=== PATIENT | female | born 2000 | race Caucasian/White ===

== ENCOUNTER 2021-10-25 12:45 | Emergency (ER) | payer OTHER ==
[2021-10-26 15:26] LABS: Chlamydia by PCR Not Detected (NotDetected); GC by PCR Not Detected (NotDetected)
== END 2021-10-25 15:30 | disposition home or self-care (01) ==
LOC: CSHERS 12:45
DX: O20.0 Threatened abortion (principal); Z3A.08 8 weeks gestation of pregnancy
CPT/HCPCS: 87480; 87491; 87510; 87591; 87660

== ENCOUNTER 2021-10-26 23:37 | Emergency (ER) | payer OTHER | END 2021-10-27 00:22 | disposition home or self-care (01) | LOC: CSHERS 23:37 | DX: O23.591 Infection of other part of genital tract in pregnancy, first trimester (principal); Z3A.08 8 weeks gestation of pregnancy | CPT/HCPCS: 99283 ==

== ENCOUNTER 2021-11-03 17:51 | Emergency (ER) | payer OTHER ==
[2021-11-03 18:30] LABS: #Monocytes 0.5 10x3/uL (0.0-1.1); #Neutrophils 5.2 10x3/uL (1.5-8.4); %Basophils 0.4 % (0.0-2.0); %Eosinophils 0.6 % (0.0-6.0); %Lymphocytes 16.6 % (18.0-47.0); %Monocytes 6.5 % (0.0-10.0); %Neutrophils 75.5 % (40.0-75.0); Hemoglobin 10.6 g/dL (12.0-15.5); Mean Corpuscular HGB CONC 31.5 g/dL (32.0-36.0); Mean Corpuscular Hemoglobin 22.6 pg (27.0-33.0); Mean Corpuscular Volume 71.5 fl (81.6-98.3); Platelet Count 273 10x3/uL (150-450); RBC Distribution Width 15.3 % (11.5-14.5); White Blood Cell (WBC) Count 6.9 10x3/uL (3.5-10.5)
[2021-11-04 21:20] LABS: Chlamydia by PCR Not Detected (NotDetected); GC by PCR Not Detected (NotDetected)
== END 2021-11-03 19:35 | disposition home or self-care (01) ==
LOC: CSHERS 17:51
DX: O20.0 Threatened abortion (principal); Z3A.10 10 weeks gestation of pregnancy
CPT/HCPCS: 36415; 84702; 85025; 86900; 86901; 87480; 87491; 87510; 87591; 87660

== ENCOUNTER 2022-03-03 13:56 | Day surgery (SDC) | payer OTHER ==
[2022-03-03 14:20] VITALS: BMI 21.1
[2022-03-03 14:56] LABS: Fetal Membranes Rupture No Membranes Rupture (No Rupture)
[2022-03-03] MEDS ORDERED: hydrALAZINE 20 MG/ML VIAL SLOW IVP PRN (15:09)
[2022-03-03] MEDS ORDERED: Acetaminophen/Codeine 30-300mg Tablet PO SCH (15:15)
[2022-03-03 15:48] LABS: Bilirubin Neg (Negative); Blood, Urine Negative (Negative); Clarity Slightly Cloudy (Clear); Glucose, Urine (Dipstick) Normal (Negative); Ketone, Urine 150 mg/dL (Negative); Leukocyte Negative (Negative); Nitrite Negative (Negative); Protein, Urine (Dipstick) Negative (Neg-Trace)
[2022-03-03 16:04] LABS: Bacteria/HPF 1+ HPF (None Seen); Mucous/LPF 2+ LPF (<2+); RBC/HPF 0-3 HPF (0-3)
== END 2022-03-03 16:30 | disposition home or self-care (01) ==
LOC: CSHLD/OP 13:56
PROVIDERS: ATTEND Obstetrics & Gynecology
DX: O26.892 Other specified pregnancy related conditions, second trimester (principal); N89.8 Other specified noninflammatory disorders of vagina; M54.9 Dorsalgia, unspecified; R10.9 Unspecified abdominal pain; O98.812 Other maternal infectious and parasitic diseases complicating pregnancy, second trimester; B37.3 Candidiasis of vulva and vagina; O23.592 Infection of other part of genital tract in pregnancy, second trimester; B96.89 Other specified bacterial agents as the cause of diseases classified elsewhere; Z3A.27 27 weeks gestation of pregnancy; Z91.040 Latex allergy status; Z91.048 Other nonmedicinal substance allergy status
CPT/HCPCS: 81001; 84112; 87480; 87510; 87660

== ENCOUNTER 2022-03-15 21:10 | Day surgery (SDC) | payer OTHER ==
[2022-03-15 21:32] VITALS: BMI 21.1
[2022-03-15] MEDS ORDERED: hydrALAZINE 20 MG/ML VIAL SLOW IVP PRN (22:04)
== END 2022-03-15 22:08 | disposition left against medical advice (07) ==
LOC: CSHLD/OP 21:10
PROVIDERS: ATTEND Obstetrics & Gynecology
DX: O47.03 False labor before 37 completed weeks of gestation, third trimester (principal); Z53.29 Procedure and treatment not carried out because of patient's decision for other reasons; Z3A.28 28 weeks gestation of pregnancy; Z91.040 Latex allergy status; Z91.048 Other nonmedicinal substance allergy status; Z86.19 Personal history of other infectious and parasitic diseases

== ENCOUNTER 2022-03-16 00:38 | Day surgery (SDC) | payer OTHER ==
[2022-03-16 00:54] VITALS: BMI 21.1
[2022-03-16] MEDS ORDERED: hydrALAZINE 20 MG/ML VIAL SLOW IVP PRN (01:02)
[2022-03-16] MEDS ORDERED: Lactated Ringer's 1,000 ML IV SCH (01:30)
[2022-03-16 01:43] LABS: Bilirubin Neg (Negative); Blood, Urine Negative (Negative); Clarity Slightly Cloudy (Clear); Glucose, Urine (Dipstick) Normal (Negative); Ketone, Urine Negative (Negative); Leukocyte Negative (Negative); Nitrite Negative (Negative); Protein, Urine (Dipstick) 15 mg/dl (Neg-Trace); Specific Gravity, Urine 1.025 (1.002-1.036); Urobilinogen 12 mg/dL (Less than 2)
[2022-03-16 01:49] LABS: Urine Culture Reflex No No
[2022-03-16 01:50] LABS: Bacteria/HPF 1+ HPF (None Seen); RBC/HPF 0-3 HPF (0-3); WBC/HPF 0-3 HPF (0-3)
[2022-03-16 01:51] LABS: Crystals/HPF 3+ CA OXALATE HPF (Negative)
[2022-03-16 02:51] LABS: FFN Internal QC Analyzer PASS (PASS); FFN Internal QC Cassette PASS (PASS); Fetal Fibronectin Negative (Negative)
== END 2022-03-16 06:30 | disposition home or self-care (01) ==
LOC: CSHLD/OP 00:38
PROVIDERS: ATTEND Obstetrics & Gynecology
DX: O47.03 False labor before 37 completed weeks of gestation, third trimester (principal); O09.213 Supervision of pregnancy with history of pre-term labor, third trimester; Z3A.28 28 weeks gestation of pregnancy; Z79.2 Long term (current) use of antibiotics; Z91.040 Latex allergy status
CPT/HCPCS: 81001; 82731

== ENCOUNTER 2022-04-17 15:03 | Day surgery (SDC) | payer OTHER ==
[2022-04-17] MEDS ORDERED: hydrALAZINE 20 MG/ML VIAL SLOW IVP PRN (17:18)
[2022-04-17 18:16] LABS: Fetal Membranes Rupture No Membranes Rupture (No Rupture)
[2022-04-17 18:32] LABS: Bilirubin Neg (Negative); Blood, Urine Negative (Negative); Clarity Clear (Clear); Glucose, Urine (Dipstick) Normal (Negative); Ketone, Urine 5 mg/dL (Negative); Leukocyte 25 (Negative); Nitrite Negative (Negative); Protein, Urine (Dipstick) Negative (Neg-Trace); Specific Gravity, Urine 1.005 (1.002-1.036); pH, Urine 6.5 (5.0-9.0)
[2022-04-17 18:34] LABS: Urine Culture Reflex No No
[2022-04-17 18:42] LABS: WBC/HPF 0-3 HPF (0-3)
[2022-04-17 18:43] LABS: Bacteria/HPF Rare-Few HPF (None Seen); RBC/HPF None Seen HPF (0-3); Squamous Epithelial 0-3 HPF (0-3)
== END 2022-04-17 19:15 | disposition home or self-care (01) ==
LOC: CSHLD/OP 15:03
PROVIDERS: ATTEND Obstetrics & Gynecology
DX: O26.893 Other specified pregnancy related conditions, third trimester (principal); R10.9 Unspecified abdominal pain; O98.813 Other maternal infectious and parasitic diseases complicating pregnancy, third trimester; B37.49 Other urogenital candidiasis; Z3A.33 33 weeks gestation of pregnancy
CPT/HCPCS: 81001; 84112; 87077; 87086; 87480; 87510; 87660

== ENCOUNTER 2022-04-25 21:37 | Day surgery (SDC) | payer OTHER ==
[2022-04-25 21:50] VITALS: BMI 22.0
[2022-04-25] MEDS ORDERED: hydrALAZINE 20 MG/ML VIAL SLOW IVP PRN (22:48)
[2022-04-25] MEDS ORDERED: Acetaminophen 325 MG TAB PO SCH (23:00)
[2022-04-26] MEDS ORDERED: Fluconazole 100 MG TAB PO SCH
[2022-04-26] MEDS ORDERED: Morphine 10 MG/ML VIAL IM SCH (00:15)
[2022-04-26] MEDS ORDERED: Promethazine 25 MG TAB PO SCH ×2 (00:15→04:00)
[2022-04-26] MEDS ORDERED: Acetaminophen 500 MG TAB PO SCH (04:00)
[2022-04-26] MEDS ORDERED: Ondansetron ODT 4 MG TAB PO SCH (08:00)
== END 2022-04-26 07:55 | disposition home or self-care (01) ==
LOC: CSHLD/OP 21:37
PROVIDERS: ATTEND Obstetrics & Gynecology
DX: O26.893 Other specified pregnancy related conditions, third trimester (principal); R10.2 Pelvic and perineal pain; M54.50 Low back pain, unspecified; N89.8 Other specified noninflammatory disorders of vagina; Z3A.34 34 weeks gestation of pregnancy; Z79.899 Other long term (current) drug therapy; Z91.041 Radiographic dye allergy status; Z88.8 Allergy status to other drugs, medicaments and biological substances; Z98.890 Other specified postprocedural states
CPT/HCPCS: 87480; 87510; 87660; 96360; 96361; 99285; J2270; Q0169

== ENCOUNTER 2022-05-05 18:39 | Day surgery (SDC) | payer OTHER ==
[2022-05-05] MEDS ORDERED: hydrALAZINE 20 MG/ML VIAL SLOW IVP PRN (19:55)
[2022-05-05] MEDS ORDERED: Morphine 10 MG/ML VIAL IM SCH (20:00)
[2022-05-05] MEDS ORDERED: Promethazine HCl 25 MG/ML VIAL IM SCH (20:00)
[2022-05-07] MEDS ORDERED: hydrALAZINE 20 MG/ML VIAL SLOW IVP PRN (23:00)
[2022-05-07] MEDS ORDERED: Fluconazole 100 MG TAB PO SCH (23:59)
== END 2022-05-05 21:35 | disposition home or self-care (01) ==
LOC: CSHLD/OP 18:39
PROVIDERS: ATTEND Obstetrics & Gynecology
DX: O60.03 Preterm labor without delivery, third trimester (principal); Z3A.36 36 weeks gestation of pregnancy; O26.893 Other specified pregnancy related conditions, third trimester; N89.8 Other specified noninflammatory disorders of vagina; Z87.19 Personal history of other diseases of the digestive system; Z79.899 Other long term (current) drug therapy; Z91.040 Latex allergy status
CPT/HCPCS: 87480; 87510; 87660; 96372; 99285; J2270; J2550

== ENCOUNTER 2022-05-07 22:35 | Day surgery (SDC) | payer OTHER ==
[2022-05-07] MEDS ORDERED: hydrALAZINE 20 MG/ML VIAL SLOW IVP PRN (23:14)
[2022-05-07] MEDS ORDERED: Acetaminophen/Codeine 30-300mg Tablet PO SCH (23:15)
[2022-05-07] MEDS ORDERED: Fluconazole 100 MG TAB PO SCH (23:30)
[2022-05-08 00:20] LABS: Fetal Membranes Rupture No Membranes Rupture (No Rupture)
== END 2022-05-08 01:00 | disposition home or self-care (01) ==
LOC: CSHLD/OP 22:35
PROVIDERS: ATTEND Obstetrics & Gynecology
DX: O26.893 Other specified pregnancy related conditions, third trimester (principal); R10.2 Pelvic and perineal pain; O42.913 Preterm premature rupture of membranes, unspecified as to length of time between rupture and onset of labor, third trimester; Z91.040 Latex allergy status; O98.813 Other maternal infectious and parasitic diseases complicating pregnancy, third trimester; B37.3 Candidiasis of vulva and vagina; Z3A.36 36 weeks gestation of pregnancy
CPT/HCPCS: 84112; 99284

== ENCOUNTER 2022-05-24 23:35 | Day surgery (SDC) | payer OTHER ==
[2022-05-25] MEDS ORDERED: hydrALAZINE 20 MG/ML VIAL SLOW IVP PRN (00:15)
[2022-05-25 00:37] LABS: Fetal Membranes Rupture No Membranes Rupture (No Rupture)
== END 2022-05-25 01:02 | disposition home or self-care (01) ==
LOC: CSHLD/OP 23:35
PROVIDERS: ATTEND Obstetrics & Gynecology
DX: O47.1 False labor at or after 37 completed weeks of gestation (principal); Z91.040 Latex allergy status; Z3A.38 38 weeks gestation of pregnancy
CPT/HCPCS: 84112; 99282

== ENCOUNTER 2022-06-06 16:13 | Observation (INO) | payer OTHER ==
[2022-06-06] MEDS ORDERED: Prochlorperazine 10 MG/2 ML VIAL ONE (17:11)
[2022-06-06] MEDS ORDERED: diphenhydrAMINE 50 MG/ML VIAL ONE ×2 (17:12→18:44)
[2022-06-06] MEDS ORDERED: Ketorolac Tromethamine 30 MG/ML VIAL ONE (17:12)
[2022-06-06] MEDS ORDERED: Caffeine/Sodium Benzoate 0.5 GM in Sodium Chloride 0.9% 1,000 ML IVPB SCH (17:45)
[2022-06-06] MEDS ORDERED: Magnesium 2 GM/50 ML BAG (IN WATER) ONE ×2 (19:37→19:44)
[2022-06-06 20:15] LABS: #Basophils 0.1 10x3/uL (0.0-0.2); #Eosinphils 0.1 10x3/uL (0.0-0.5); #Monocytes 0.4 10x3/uL (0.0-1.1); %Basophils 0.5 % (0.0-2.0); %Eosinophils 0.8 % (0.0-6.0); %Lymphocytes 25.4 % (18.0-47.0); %Neutrophils 68.9 % (40.0-75.0); Hemoglobin 9.1 g/dL (12.0-15.5); Mean Corpuscular HGB CONC 28.7 g/dL (32.0-36.0); Mean Corpuscular Hemoglobin 19.9 pg (27.0-33.0); Mean Corpuscular Volume 69.2 fl (81.6-98.3); Mean Platelet Volume 7.8 fl (7.4-10.4); Platelet Count 436 10x3/uL (150-450); RBC Distribution Width 18.3 % (11.5-14.5); Red Blood Cell (RBC) Count 4.58 10x6/uL (3.90-5.03); White Blood Cell (WBC) Count 10.1 10x3/uL (3.5-10.5)
[2022-06-06 20:30] LABS: ALT (SGPT) 9 U/L (8-55); AST (SGOT) 9 U/L (5-34); Albumin 3.5 g/dL (3.5-5.0); Alkaline Phosphatase 131 U/L (40-110); Anion Gap 14 mmol/L (10-20); BUN (Urea Nitrogen) 6 mg/dL (7.0-18.7); Bilirubin, Total 1.1 mg/dL (0.2-1.2); Calc. Creatinine Clearance 0 mL/min (70-130); Calcium 8.5 mg/dL (7.8-10.44); Carbon Dioxide 19 mmol/L (22-29); Chloride 112 mmol/L (98-107); Estimated GFR 131; Glucose 87 mg/dL (70-105); Potassium 3.6 mmol/L (3.5-5.1); Protein, Total 6.5 g/dL (6.0-8.3); Sodium 141 mmol/L (136-145); Uric Acid 5.3 mg/dL (2.6-6.0)
[2022-06-06] MEDS ORDERED: Magnesium Sulfate 20 gm/500 ml 20 GM/500 ML BAG ONE (20:40)
[2022-06-06] MEDS ORDERED: hydrALAZINE 20 MG/ML VIAL SLOW IVP PRN (21:04)
[2022-06-06] MEDS ORDERED: Calcium Gluc 4.6 MEQ/10 ML (100 MG/ML) SLOW IVP PRN (21:06)
[2022-06-06] MEDS ORDERED: Lorazepam 2 MG/ML VIAL SLOW IVP PRN (21:06)
[2022-06-06] MEDS ORDERED: Metoclopramide HCl 10 MG/2 ML VIAL IVP SCH (21:15)
[2022-06-06 21:20] LABS: Amphetamine Not Detected (NotDetected); Barbiturates Screen Not Detected (NotDetected); Benzodiazepine Screen Not Detected (NotDetected); Cocaine Metabolite Screen Not Detected (NotDetected); Methadone Not Detected (NotDetected); Methamphetamine Not Detected (NotDetected); Opiate Screen Not Detected (NotDetected); Oxycodone Screen Not Detected (NotDetected); Phencyclidine (PCP) Not Detected (NotDetected); THC/Cannabinoid Screen Not Detected (NotDetected); Tricyclic Screen Not Detected (NotDetected)
[2022-06-06 21:30] LABS: Creatinine, Urine Less than 20.00 mg/dL (47-110); Protein, Urine Random Quant Less than 10 mg/dL (1-14)
[2022-06-06] MEDS ORDERED: NIFEdipine XL 30 MG TAB PO SCH (21:30)
[2022-06-06] MEDS ORDERED: Magnesium Sulfate 20 gm/500 ml 20 GM/500 ML BAG IVPB SCH (21:30)
[2022-06-06 21:45] LABS: Platelet Morphology Comment Appears Adequate; RBC Morphology Normal
[2022-06-07] MEDS: Acetaminophen 500 MG TAB PO PRN ×3 (03:04→20:41)
[2022-06-07] MEDS ORDERED: diphenhydrAMINE 50 MG/ML VIAL IVP PRN (05:52)
[2022-06-07] MEDS ORDERED: Metoclopramide HCl 10 MG/2 ML VIAL IVP PRN (05:54)
[2022-06-07] MEDS ORDERED: hydrALAZINE 20 MG/ML VIAL SLOW IVP PRN (14:38)
[2022-06-07] MEDS ORDERED: Bisacodyl 10 MG SUPP PR PRN (14:38)
[2022-06-07] MEDS ORDERED: Zolpidem Tartrate 5 MG TAB PO PRN (14:38)
[2022-06-07] MEDS ORDERED: diphenhydrAMINE 25 MG CAP PO PRN (14:38)
[2022-06-07] MEDS ORDERED: Boostrix 0.5 ML (Tdap) VIAL (>/=7 yrs of age) IM ONE (14:38)
[2022-06-07] MEDS ORDERED: Milk Of Magnesia 30 ML UDCUP PO PRN (14:38)
[2022-06-07] MEDS ORDERED: Benzocaine-Menthol 82.5 ML CAN TOP PRN (14:38)
[2022-06-07 15:43] VITALS: BMI 20.4
[2022-06-07] MEDS: Ferrous Sulfate 325 MG TAB PO SCH (16:02)
[2022-06-07] MEDS: Docusate 100 MG CAP PO SCH (20:04)
[2022-06-07] MEDS ORDERED: NIFEdipine XL 30 MG TAB PO SCH (21:00)
[2022-06-07] MEDS ORDERED: Ibuprofen 800 MG TAB PO SCH (22:00)
[2022-06-08] MEDS: Ibuprofen 800 MG TAB PO SCH ×2 (00:03→08:08)
[2022-06-08] MEDS: Ferrous Sulfate 325 MG TAB PO SCH (08:08)
[2022-06-08] MEDS: Docusate 100 MG CAP PO SCH (08:08)
[2022-06-08 10:59] VITALS: BP 138/85; TEMP 97.5
[2022-06-08] MEDS: Acetaminophen 500 MG TAB PO PRN (14:22)
== END 2022-06-08 14:26 | disposition home or self-care (01) ==
LOC: CSHERS 16:13 → CSHLD 20:32 → INTOOBSV 20:32 → CSHPP 06-07 14:47
PROVIDERS: ADMIT Obstetrics & Gynecology; ATTEND Obstetrics & Gynecology
DX: O89.4 Spinal and epidural anesthesia-induced headache during the puerperium (principal); O14.15 Severe pre-eclampsia, complicating the puerperium; Z91.040 Latex allergy status; Z79.899 Other long term (current) drug therapy
CPT/HCPCS: 62273; 80053; 80306; 82570; 83615; 84156; 84550; 85025; 96365; 96367; 96375; 96376; 99285; G0378; J0706; J0780; J1200; J1885; J2765; J3475; J7050

== ENCOUNTER 2022-11-27 11:43 | Emergency (ER) | payer OTHER ==
[2022-11-27 12:31] LABS: #Monocytes 0.2 10x3/uL (0.0-1.1); #Neutrophils 5.9 10x3/uL (1.5-8.4); %Basophils 0.1 % (0.0-2.0); %Lymphocytes 10.5 % (18.0-47.0); %Monocytes 2.9 % (0.0-10.0); %Neutrophils 86.2 % (40.0-75.0); Hemoglobin 9.8 g/dL (12.0-15.5); Mean Corpuscular HGB CONC 28.7 g/dL (32.0-36.0); Mean Corpuscular Hemoglobin 19.8 pg (27.0-33.0); Mean Corpuscular Volume 69.2 fl (81.6-98.3); Mean Platelet Volume 8.5 fl (7.4-10.4); Platelet Count 460 10x3/uL (150-450); RBC Distribution Width 17.2 % (11.5-14.5); Red Blood Cell (RBC) Count 4.94 10x6/uL (3.90-5.03); White Blood Cell (WBC) Count 6.9 10x3/uL (3.5-10.5)
[2022-11-27 12:32] LABS: Bilirubin Neg (Negative); Blood, Urine Negative (Negative); Clarity Clear (Clear); Glucose, Urine (Dipstick) 250 mg/dL (Negative); Ketone, Urine 15 mg/dL (Negative); Leukocyte Negative (Negative); Nitrite Negative (Negative); Protein, Urine (Dipstick) 15 mg/dl (Neg-Trace); Urobilinogen Normal mg/dL (Less than 2)
[2022-11-27 12:41] LABS: ALT (SGPT) 9 U/L (8-55); AST (SGOT) 10 U/L (5-34); Albumin 4.4 g/dL (3.5-5.0); Alkaline Phosphatase 89 U/L (40-110); Anion Gap 15 mmol/L (10-20); BUN (Urea Nitrogen) 12 mg/dL (7.0-18.7); Bilirubin, Total 0.9 mg/dL (0.2-1.2); Calc. Creatinine Clearance 0 mL/min (70-130); Calcium 9.7 mg/dL (7.8-10.44); Carbon Dioxide 20 mmol/L (22-29); Chloride 108 mmol/L (98-107); Estimated GFR 102; Globulin 2.6 g/dL (2.4-3.5); Glucose 182 mg/dL (70-105); Lipase 24 U/L (8-78); Potassium 3.4 mmol/L (3.5-5.1); Sodium 140 mmol/L (136-145)
[2022-11-27 12:53] LABS: Hypochromia SLIGHT = 6-15 cells (100X) (0-5/hpf); Microcytosis MARKED = >30 cells (100X) (0-5/hpf); Platelet Morphology Comment Appears Adequate
== END 2022-11-27 15:41 | disposition home or self-care (01) ==
LOC: CSHERS 11:43
DX: K80.20 Calculus of gallbladder without cholecystitis without obstruction (principal)
CPT/HCPCS: 76705; 80053; 81003; 83690; 85025; 96374

== ENCOUNTER 2023-01-07 08:39 | Emergency (ER) | payer OTHER ==
[2023-01-07] MEDS ORDERED: clonazePAM 0.5 MG TAB ONE (09:25)
== END 2023-01-07 09:45 | disposition home or self-care (01) ==
LOC: CSHERS 08:39
DX: R07.9 Chest pain, unspecified (principal); F43.0 Acute stress reaction; T74.21XA Adult sexual abuse, confirmed, initial encounter
CPT/HCPCS: 93005